=== PATIENT | male | born 1990 | race Hispanic/Latino ===

== ENCOUNTER 2024-04-02 21:12 | Emergency (ER) | payer OTHER, SELFPAY ==
[2024-04-03 00:47] LABS: Influenza A by NAA Not Detected (NotDetected); Influenza B by NAA Not Detected (NotDetected); SARS-CoV-2 NAA Rapid Test Not Detected (NotDetected)
[2024-04-03] MEDS ORDERED: Doxycycline 100 MG CAP PO SCH (01:30)
== END 2024-04-03 01:56 | disposition home or self-care (01) ==
LOC: CSHERS 21:12
DX: J18.9 Pneumonia, unspecified organism (principal)
CPT/HCPCS: 99283